=== PATIENT | female | born 1970 | race Caucasian/White ===

== ENCOUNTER → 2016-08-02 | Outpatient (CLI) | payer BC ==
[2014-12-23 13:00] VITALS: BP 100/61
[~2016-08-02] MED LIST: DOCU-109 PO; DULO60CA6 PO; FOLI1TAB16 PO; HYDR200T PO; METH2.5T PO; MULT1TAB6 PO; PANT40TA5 PO; TRAM-48 PO
--- NOTE | 2016-08-02 10:20 | RAD ---
DATE: 08/02/2016 EXAM: DIGITAL DIAGNOSTIC LT HISTORY: 6 month follow-up. COMPARISON: 12/07/2015 FINDINGS: Breast Density: SCATTERED The breast parenchyma shows scattered fibroglandular densities. Breast parenchyma level B. A few calcifications are seen in the breast having a benign and stable appearance relative to the previous exam. A significant change in the appearance of the left breast on mammography is not seen Report of targeted ultrasound of the left breast is to follow and will be the subject of a separate dictation IMPRESSION: Benign findings left breast. BI-RADS CATEGORY: 2 BENIGN FINDING(S) RECOMMENDED FOLLOW-UP: 6M 6 MONTH FOLLOW-UP bilateral study PQRS compliance statement: Patient information was entered into a reminder system with a target due date 12/06/2016 for the next mammogram. Mammography is a sensitive method for finding small breast cancers, but it does not detect them all and is not a substitute for careful clinical examination. A negative mammogram does not negate a clinically suspicious finding and should not result in delay in biopsying a clinically suspicious abnormality. "Our facility is accredited by the [employer] Mammography Program."
--- NOTE | 2016-08-02 10:59 | RAD ---
Indication follow-up. Targeted ultrasound of the left breast was performed. The examination was centered about the 9 to the 12:00 position. Note is made of a similar examination 12/07/2015 No abnormality is seen in the area examined. IMPRESSION: Normal targeted ultrasound left breast
== END | disposition home or self-care (01) ==
LOC: KCIC MAMMO 09:48
PROVIDERS: ATTEND Family Medicine
DX: R92.8 Other abnormal and inconclusive findings on diagnostic imaging of breast (principal)
CPT/HCPCS: 76641; G0206; 77065